=== PATIENT | female | born 1975 | race Caucasian/White ===

== ENCOUNTER 2016-11-26 15:05 | Emergency (ER) | payer OTHER ==
--- NOTE | 2016-11-26 15:23 | EDPHY ---
H & P Stated Complaint: cp x 1 hr Time Seen by Provider: 11/26/16 15:17 HPI/ROS: CHIEF COMPLAINT: Chest pain HISTORY OF PRESENT ILLNESS: The patient presents to the ED after an episode of chest pain that began 1.5 hours ago. She describes a substernal heaviness with some discomfort in her neck and associated dyspnea. The patient reports she has not had these symptoms in the past. She has no risk factors for cardiac disease including no prior history of hypertension, diabetes or hyperlipidemia. There is no family history of heart disease. The patient is a nonsmoker. The patient has no complaints of asymmetric calf pain or swelling. She does complain of mild ongoing dyspnea. She denies pleuritic chest pain. The patient has had increasing stress slightly with some increasing bouts of restless leg activity and psychomotor agitation. REVIEW OF SYSTEMS: A comprehensive 10 point review of systems is otherwise negative aside from elements mentioned in the history of present illness. Source: Patient Exam Limitations: No limitations - Personal History LMP (Females 10-55): Now Current Tetanus Diphtheria and Acellular Pertussis (TDAP): Unsure - Medical/Surgical History Other PMH: denies - Social History Smoking Status: Never smoked - Physical Exam Exam: General Appearance: Alert, no distress Eyes: Pupils equal and round no pallor or injection ENT, Mouth: Mucous membranes moist Respiratory: There are no retractions, lungs are clear to auscultation Cardiovascular: Regular rate and rhythm Gastrointestinal: Abdomen is soft and nontender, no masses, bowel sounds normal Neurological: A&O, normal motor function, normal sensory exam, normal cranial nerves Skin: Warm and dry, no rashes Musculoskeletal: Neck is supple nontender Extremities: symmetrical, full range of motion Constitutional: Initial Vital Signs Temperature (C) 36.6 C 11/26/16 15:09 Heart Rate 121 H 11/26/16 15:09 Respiratory Rate 18 11/26/16 15:09 Blood Pressure 161/105 H 11/26/16 15:09 O2 Sat (%) 100 11/26/16 15:09 O2 Delivery Mode Room Air O2 (L/minute) 2 Allergies/Adverse Reactions: antibiotic Allergy (Uncoded 11/26/16 15:08) Home Medications: Medication Instructions Recorded NK [No Known Home Meds] 11/26/16 Medical Decision Making - Diagnostics EKG Interpretation: EKG: Complete interpretation has been separately recorded in the [email or web address] archive. Summary impression: Sinus rhythm ED Course/Re-evaluation: The patient presents to the ED after an episode of atypical chest pain in the setting of increasing stress. At this point time there is no evidence of active ischemia. The patient's troponin is normal. The patient has no risk factors for coronary artery disease. The patient is comfortable being discharged home and following up with Cardiology this week for a treadmill stress test. She does understand the limitations of the testing done in the ED today. Patient will be discharged home with customary aftercare instructions and return precautions. She was re-evaluated by myself at 5:00 p.m. and is chest pain-free. Differential Diagnosis: Differential diagnosis considered includes acute coronary syndrome, myocardial infarction, esophageal spasm, pulmonary embolism - Data Points Laboratory Results: Laboratory Results 11/26/16 15:50 11/26/16 15:50 11/26/16 11/26/16 15:50 15:50 WBC 7.17 10^3/uL 10^3/uL (3.80-9.50) RBC 5.58 10^6/uL H 10^6/uL (4.18-5.33) Hgb 15.7 g/dL g/dL (12.6-16.3) Hct 47.1 % H % (38.0-47.0) MCV 84.4 fL fL (81.5-99.8) MCH 28.1 pg pg (27.9-34.1) MCHC 33.3 g/dL g/dL (32.4-36.7) RDW 13.2 % % (11.5-15.2) Plt Count 346 10^3/uL 10^3/uL (150-400) MPV 9.5 fL fL (8.7-11.7) Neut % (Auto) 75.7 % H % (39.3-74.2) Lymph % (Auto) 18.7 % % (15.0-45.0) [place] % (Auto) 4.6 % % (4.5-13.0) Eos % (Auto) 0.3 % L % (0.6-7.6) Baso % (Auto) 0.4 % % (0.3-1.7) Nucleat RBC Rel Count 0.0 % % (0.0-0.2) Absolute Neuts (auto) 5.43 10^3/uL 10^3/uL (1.70-6.50) Absolute Lymphs (auto) 1.34 10^3/uL 10^3/uL (1.00-3.00) Absolute Monos (auto) 0.33 10^3/uL 10^3/uL (0.30-0.80) Absolute Eos (auto) 0.02 10^3/uL L 10^3/uL (0.03-0.40) Absolute Basos (auto) 0.03 10^3/uL 10^3/uL (0.02-0.10) Absolute Nucleated RBC 0.00 10^3/uL 10^3/uL (0-0.01) Immature Gran % 0.3 % % (0.0-1.1) Immature Gran # 0.02 10^3/uL 10^3/uL (0.00-0.10) Sodium 140 mEq/L mEq/L (134-144) Potassium 3.9 mEq/L mEq/L (3.5-5.2) Chloride 102 mEq/L mEq/L (97-110) Carbon Dioxide 25 mEq/l mEq/l (22-31) Anion Gap 13 mEq/L mEq/L (8-16) BUN 12 mg/dL mg/dL (7-23) Creatinine 0.8 mg/dL mg/dL (0.6-1.0) Estimated GFR > 60 Glucose 101 mg/dL H mg/dL (70-100) Calcium 10.3 mg/dL mg/dL (8.5-10.4) Troponin I < 0.012 ng/mL ng/mL (0-0.034) Departure - Departure Disposition: Home, Routine, Self-Care Clinical Impression: Chest pain Qualifiers: Chest pain type: other chest pain Qualified Code(s): R07.89 - Other chest pain ; R07.8 - Other chest pain Condition: Good Instructions: Chest Pain (ED) Additional Instructions: 1. Based upon the testing done in the Emergency Department today we see no evidence of a heart attack. 2. We are unable to fully exclude coronary artery disease based upon the testing available in the Emergency Department. 3. For this reason, we would like you to be seen by cardiology for consideration of additional testing within the next 3 days. 4. Please contact the acoustical installer you have been referred to schedule this appointment as soon as possible. Their offices are typically open from 8:30am- 5pm M-F. 5. Please return to the Emergency Department immediately for any recurrent chest pain, difficulty breathing or other concerns. Referrals: Wan Tejeda MD [Medical Doctor] - As per Instructions
--- NOTE | 2016-11-26 15:28 | CPEKG ---
Heart Rate: 85 RR Interval: 706 P-R Interval: 172 QRSD Interval: 92 QT Interval: 372 QTC Interval: 443 P [place]: 31 QRS [place]: 49 T Wave [place]: 54 EKG Severity - NORMAL ECG - EKG Impression: SINUS RHYTHM Electronically Signed By: Ej Enriquez 26-Nov-2016 15:29:48
[2016-11-26 15:29] VITALS: O2SAT 98
[2016-11-26 16:00] LABS: % IMMATURE GRANULYOCYTES 0.3 % (0.0-1.1); ABSOLUTE IMMATURE GRANULOCYTES 0.02 10^3/uL (0.00-0.10); ADD DIFF? NO; ADD MORPH? NO; ADD SCAN? NO; ATYPICAL LYMPHOCYTE FLAG 10 (0-99); FRAGMENT RBC FLAG 0 (0-99); HEMATOCRIT 47.1 % (38.0-47.0); HEMOGLOBIN 15.7 g/dL (12.6-16.3); LEFT SHIFT FLG 0 (0-99); LIPEMIA HEMOLYSIS FLAG 80 (0-99); MEAN CELL HEMOGLOBIN 28.1 pg (27.9-34.1); MEAN CELL HEMOGLOBIN CONCENTR. 33.3 g/dL (32.4-36.7); MEAN CELL VOLUME 84.4 fL (81.5-99.8); MEAN PLATELET VOLUME 9.5 fL (8.7-11.7); PLATELET CLUMPS FLAG 30 (0-99); PLATELET COUNT 346 10^3/uL (150-400); RED BLOOD CELL COUNT 5.58 10^6/uL (4.18-5.33); RED CELL DISTRIBUTION WIDTH 13.2 % (11.5-15.2)
[2016-11-26 16:40] LABS: ANION GAP 13 mEq/L (8-16); CALCIUM 10.3 mg/dL (8.5-10.4); CARBON DIOXIDE 25 mEq/l (22-31); CHLORIDE 102 mEq/L (97-110); CREATININE 0.8 mg/dL (0.6-1.0); GLOMERULAR FILTRATION RATE > 60; GLUCOSE 101 mg/dL (70-100); POTASSIUM 3.9 mEq/L (3.5-5.2); SODIUM 140 mEq/L (134-144)
[2016-11-26 16:50] LABS: TROPONIN I < 0.012 ng/mL (0-0.034)
[2016-11-26 17:14] VITALS: BP 127/45; PULSE 81; RESP 16; TEMP 97.5
== END 2016-11-26 17:14 | disposition home or self-care (01) ==
DX: R07.89 Other chest pain (principal)